=== PATIENT | male | born 1950 | race Caucasian/White ===

== ENCOUNTER 2018-08-15 06:23 | Day surgery (SDC) | payer OTHER ==
[2018-08-08 09:29] VITALS: BMI 39.0
[~2018-08-15 06:23] MED LIST: ACETAMINOPHEN 325 MG TABLET (FP) PO PRN; CEFAZOLIN 1 GM/D5W 1 GM/50 ML BAG IVPB ONE
[2018-08-15] MEDS ORDERED: LIDOCAINE HCL 1%, 10 MG/ML (20ML VIAL) ONE (07:41)
[2018-08-15] MEDS ORDERED: DEXAMETHASONE SOD PHOSPHATE 4 MG/1 ML VIAL ONE (07:41)
[2018-08-15] MEDS ORDERED: LIDOCAINE HCL 2% (20ML MULTI-DOSE VIAL) NR ONE (07:42)
[2018-08-15] MEDS ORDERED: BUPIVACAINE HCL/PF 0.5% (5MG/ML) 10 ML VIAL ONE (07:42)
[2018-08-15] MEDS ORDERED: MIDAZOLAM HCL 2 MG/2 ML SINGLE DOSE VIAL ONE ×2 (08:04)
[2018-08-15] MEDS ORDERED: ceFAZolin SODIUM 1 GM VIAL IVPB ONE (08:13)
[2018-08-15] MEDS ORDERED: LIDOCAINE HCL 1%, 10 MG/ML (20ML VIAL) NR ONE ×2 (08:18)
[2018-08-15] MEDS ORDERED: BUPIVACAINE HCL/PF (5 MG/ML) 30 ML VIAL IJ ONE ×2 (08:18)
[2018-08-15] MEDS ORDERED: ONDANSETRON 4 MG/2 ML VIAL IVPUSH PRN (09:16)
[2018-08-15] MEDS ORDERED: oxyCODONE HCL 5 MG TABLET PO PRN (09:16)
[2018-08-15] MEDS ORDERED: PROMETHAZINE HCL 25 MG/1 ML VIAL IVPB PRN (09:16)
[2018-08-15] MEDS ORDERED: LACTATED RINGERS SOLUTION 1,000 ML IV SCH (09:30)
[2018-08-15] MEDS ORDERED: ALBUTEROL SO4 0.083% IH SOL 2.5 MG/3 ML VIAL.NEB. NEB ONE (09:37)
[2018-08-15 10:52] VITALS: PULSE 88; TEMP 98
--- NOTE | 2018-08-15 11:53 | OP ---
Operative Note - Note: Operative Date: 08/15/18 Pre-Operative Diagnosis: Painful hammertoe deformity 4th and 5th toe left foot Operation: Left arthroplasty of 4th and fifth digits with medial hemiophalangectomy fifth toe left Findings: exostosis left medial phalanx Implants: none Surgeon: Luisa Garcia Anesthesiologist/COMPONENT ENGINEER: Merline Thapa MD Anesthesia: Fractional Specimens Removed: proximal phalanx head fouth and fifth toes left Estimated Blood Loss (mls): 5 Drains & Tubes with Location: none Operative Report Dictated: Yes
--- NOTE | 2018-08-15 12:07 | PN ---
Progress Note (short form) - Note Progress Note: Pt left or with vascular status instantaneus to preoperative levels and went to asu postoperatively. Dressing is dry and intact negative bleeding noted.
[2018-08-15 12:44] VITALS: BP 120/70
--- NOTE | 2018-08-17 15:31 | PATH ---
Surgical Pathology Report Patient Name: DANIELLE TRUJILLO [facility]. Rec. #: [id number] /Age/Gender: 1950 (Age: 68) / M Account: [id number] Location: [facility] SURGICAL Taken: 08/15/2018 Received: 08/15/2018 Reported: 08/17/2018 Physicians: Luisa Garcia DPM Specimen(s) Received A: 5TH TOE HEAD OF PHALANX LEFT FOOT B: 4TH TOE HEAD OF PHALANX LEFT FOOT Clinical History Painful hammertoes fourth and fifth toes left foot Final Diagnosis A. LEFT FOOT, FIFTH TOE HEAD OF PHALANX, EXCISION: BONE WITH FATTY MARROW SHOWING FOCAL DEGENERATIVE CHANGE. B. LEFT FOOT, FOURTH TOE HEAD OF PHALANX, EXCISION: BONE WITH FATTY MARROW SHOWING FOCAL DEGENERATIVE CHANGE. Electronically Signed Omar Fontanez M.D. Gross Description A. Received in formalin labeled "fifth toe head of phalanx," is a 1.2 x 0.6 x 0.6 cm frausto-yellow portion of bone. The specimen is bisected and entirely submitted in one cassette, following decalcification. B. Received in formalin labeled "left foot fourth toe head of phalanx," are 2 frausto-yellow portions of bone averaging 0.6 x 0.6 x 0.4 cm. The specimens are bisected and entirely submitted in one cassette, following decalcification. /08/16/2018 saudi08/16/2018
--- NOTE | 2018-08-17 21:24 | OP ---
DATE OF OPERATION: 08/15/2018 PREOPERATIVE DIAGNOSIS: Painful hammertoe, 4th and 5th digits, left foot. POSTOPERATIVE DIAGNOSIS: Painful hammertoe, 4th and 5th digits, left foot. SURGEON: Luisa Garcia DPM SLUNK SKINNER: Resident Pavithra De Jesus DPM, PGY3, from [facility] ANESTHESIA: 0.5% Marcaine with lidocaine 1% 50/50 solution 10 mL. OPERATION: Derotational arthroplasty, proximal interphalangeal joint, 5th digit, left foot; arthroplasty, proximal interphalangeal joint, 4th digit, right foot. HEMOSTASIS: Pneumatic ankle tourniquet at 250 mmHg. BLOOD LOSS: Less than 5 mL. PROCEDURE: The patient was brought in the operating room, placed in the supine position with IV sedation being given. IV Ancef 2 g was given preoperatively with consideration for ORIF to the 4th digit. A pneumatic tourniquet was applied to the left ankle and at this time local anesthesia was infiltrated into the 4th and 5th digit of the left foot using 9 mL of the Marcaine/lidocaine mix. The operative area was prepped and draped in the usual sterile manner with Betadine paint, and an Esmarch bandage was applied to the left foot after elevation and the tourniquet was elevated to 250 mmHg. Attention was then directed to the left 5th digit, where a converging 2 cm semielliptical longitudinal incision was made over the dorsolateral aspect of the left 5th toe. The incision encompassed the dorsal aspect of the proximal interphalangeal joint. The incisions were deepened through the subcutaneous tissue, with care taken to identify and retract all vital neurovascular structures. An ellipse of skin was removed in total using sharp dissection. All bleeders were cauterized and ligated as necessary. A transverse tenotomy and capsulotomy were made at the proximal interphalangeal joint. The head of the proximal phalanx was freed from the capsule and ligamentous attachments using a 15 blade. Utilizing a double-action bone cutter, the head of the proximal phalanx was resected and removed. Attention was then directed to the 4th digit of the left foot, where a vertical incision was made over the dorsal aspect of the digit encompassing the proximal interphalangeal joint. The incisions were deepened through the subcutaneous tissue with care taken to identify and retract all neurovascular structures at this time using sharp and blunt dissection. All bleeders were cauterized and ligated as necessary. A transverse tenotomy and capsulotomy were made at the proximal interphalangeal joint. The head of the proximal phalanx of the 4th proximal phalanx was freed from the capsular and ligamentous attachments utilizing the double-action bone cutter. The head of the proximal phalanx was resected and removed. At this time, the wounds were copiously irrigated with sterile saline and they were rasped smooth at the remaining spicules of the proximal phalanx. It was noted to be free of spiculization. It was re-irrigated again. The extensor tendons were approximated and coapted using 4-0 Vicryl sutures and the skin was closed with 5-0 nylon simple interrupted sutures over the 4th proximal interphalangeal joint and over the 5th proximal interphalangeal joint, both of the left foot. At this time, lidocaine and Marcaine mix, about 3 mL, was injected, 1.5 to each digit 4 and 5 of that left foot. Betadine, Adaptic, dry sterile dressing was applied to the 4th and 5th digit along with a 4-inch Teagan surrounding the well-padded dressing of 4 x 4s. A 4-inch Beto wrap was applied to the area. The tourniquet was then deflated. The patient tolerated the procedure well and was sent to recovery room with vital signs stable. All the digits on the left foot were noted to be instantaneous, the capillary filling time was instantaneous 1 through 5 to preoperative levels. There was no oozing through the dressing noted. Patient will be discharged with oral and written instructions as given. ESTELITA GARCIA/[id number]
== END 2018-08-15 12:30 | disposition home or self-care (01) ==
LOC: JASU-SURG 06:23
PROVIDERS: ATTEND Podiatrist
PROC: 0SRQ0JZ Replacement of Left Toe Phalangeal Joint with Synthetic Substitute, Open Approach (ICD-10-PCS; principal; 2018-08-15 08:00)
DX: M20.42 Other hammer toe(s) (acquired), left foot (principal)
CPT/HCPCS: 73630-TC-LT; 82962; 88304-TC; 88311-TC; 94760; 97116-GP

== ENCOUNTER 2018-09-28 13:46 | Emergency (ER) | payer OTHER ==
[2018-09-28 13:55] VITALS: BP 155/79; PULSE 88; TEMP 98.1; BMI 38.7
[2018-09-28 14:58] LABS: BASO % 0.5 % (0-2.0); EOS % 0.6 % (0-4.5); HEMOGLOBIN 15.7 GM/dL (11.7-16.9); LYMPH % 11.3 % (8-40); MCH 29.2 pg (25.7-33.7); MCHC 33.4 g/dl (32.0-35.9); MEAN CELL VOLUME 87.4 fl (80-96); MEAN PLT VOLUME 9.1 fl (7.5-11.1); MONO % 5.8 % (3.8-10.2); NEUT % 81.8 % (42.8-82.8); PLATELET COUNT 206 K/MM3 (134-434); RBC 5.38 M/mm3 (4.00-5.60); RDW 16.6 % (11.9-15.9); WHITE BLOOD COUNT 14.8 K/mm3 (4.0-10.0)
--- NOTE | 2018-09-28 15:07 | PDOC ---
*Physical Exam - Vital Signs Last Vital Signs Temp Pulse Resp BP Pulse Ox 98.1 F 88 16 155/79 93 L 09/28/18 13:51 09/28/18 13:51 09/28/18 13:51 09/28/18 13:51 09/28/18 13:51 - Physical Exam General Appearance: Yes: Nourished Neck: positive: Trachea midline Respiratory/Chest: positive: Chest Tender, Lungs Clear, Normal Breath Sounds Cardiovascular: positive: Regular Rhythm, Regular Rate, S1, S2 Gastrointestinal/Abdominal: positive: Normal Bowel Sounds, Flat, Soft. negative : Tender Extremity: positive: Pedal Edema, Swelling Integumentary: positive: Normal Color, Dry, Warm Neurologic: positive: Fully Oriented, Alert, Normal Mood/Affect ED Treatment Course - LABORATORY CBC & Chemistry Diagram: 09/28/18 14:51 09/28/18 14:51 Medical Decision Making - Medical Decision Making 09/28/18 15:01 68 yo male ho htn copd, followed by dr dutton, sent here from oxygen; pulmonary testing, here for concerns for sob. per patient, they were ambulating to test for home oxygen, walked him up and down the hallway. became short of breath. denies chest pain, but does have chest heaviness. no f/c no change to cough. states normally takes lasix but did not take today because he had an appointment and didn't want to be going to bathroom all the time. on exam pt lungs clear , appears comfortable. heart rrr no mr abd soft nt bilat pitting edema. both extremities. alert oriented x 3. plan labs r/o anemia, acs, ekg labs , r/o chf. cxr. will d/w dr dutton . 09/28/18 15:07 seen and examined in conjunction with JENNIFER Keith, agree with plan. *DC/Admit/Observation/Transfer - Discharge Dispostion Condition at time of disposition: Stable - Referrals - Patient Instructions - Post Discharge Activity
--- NOTE | 2018-09-28 15:26 | EKG ---
Test Reason : Blood Pressure : / mmHG Vent. Rate : 092 BPM Atrial Rate : 092 BPM P-R Int : 202 ms QRS Dur : 106 ms QT Int : 382 ms P-R-T Axes : 046 -62 046 degrees QTc Int : 472 ms SINUS RHYTHM WITH OCCASIONAL PREMATURE VENTRICULAR COMPLEXES INCOMPLETE RIGHT BUNDLE BRANCH BLOCK LEFT ANTERIOR FASCICULAR BLOCK CANNOT RULE OUT ANTERIOR INFARCT , AGE UNDETERMINED ABNORMAL ECG WHEN COMPARED WITH ECG OF 08-AUG-2018 08:35, NO SIGNIFICANT CHANGE WAS FOUND Confirmed by RAFIQ KIMBALL MD ([id number]) on 09/28/2018 3:25:44 PM Referred By: Confirmed By:RAFIQ KIMBALL MD
[2018-09-28 15:36] LABS: ALBUMIN 3.5 g/dl (3.4-5.0); ALK PHOS 90 U/L (45-117); ANION GAP 6 MMOL/L (8-16); BILIRUBIN,TOTAL 0.5 mg/dL (0.2-1); BLOOD UREA NITROGEN 16 mg/dL (7-18); CALCIUM 8.7 mg/dL (8.5-10.1); CHLORIDE 110 mmol/L (98-107); CO2 25 mmol/L (21-32); GLUCOSE,RANDOM 92 mg/dL (74-106); N-TERMINAL BNP 1296.1 pg/ml (5-125); POTASSIUM 4.4 mmol/L (3.5-5.1); SGOT/AST 11 U/L (15-37); SGPT/ALT 22 U/L (13-61); SODIUM 140 mmol/L (136-145); TOT PROT 6.8 g/dl (6.4-8.2)
--- NOTE | 2018-09-28 16:05 | PDOC ---
History of Present Illness - General Chief Complaint: Shortness of Breath Stated Complaint: SENT BY PCP Time Seen by Provider: 09/28/18 14:23 Exam Limitations: Clinical Condition - History of Present Illness Initial Comments: 09/28/18 14:32 Patient with history of hypertension, CAD and emphysema sent down by pulmonology for evaluation status post being sent for evaluation of possible supplementary oxygen due to patient having persistent low O2 sat from COPD and patient reported his O2 sats is usually around high 80%. Patient reports he was evaluated by pulmonology department today for evaluation for home oxygen and was made to walk multiple times which he started having shortness of breath after walking multiple times and was advised by knife setter grinder machine Dr. King to come down to ED for evaluation. Patient reported symptoms had resolved and had no symptoms now. Patient endorses not taking his lasix medications for peripheral edema for a week now due to appointment and does not want it in the ED as it makes him urinate frequently and will rather take his lasix medication when he gets home Timing/Duration: resolved prior to arrival Past History - Past Medical History Allergies/Adverse Reactions: Allergies Allergy/AdvReac Type Severity Reaction Status Date / Time No Known Drug Allergies Allergy Verified 09/28/18 15:04 Home Medications: Ambulatory Orders Benazepril HCl 40 mg PO DAILY 01/26/13 metFORMIN HCL [Glucophage] 1,000 mg PO BID 01/26/13 Carvedilol 3.125 mg PO TID 06/28/14 Atorvastatin Ca [Lipitor] 40 mg PO HS 08/08/18 Diltiazem [Cardizem -] 30 mg PO DAILY 08/08/18 Insulin NPH Human Isophane [Novolin N] 30 unit SQ HS 08/08/18 Insulin NPH Human Isophane [Novolin N] 70 unit SQ DAILY 08/08/18 Anemia: No Asthma: No Cancer: No Cardiac Disorders: Yes (RAPID HEART BEAT) CVA: No COPD: No CHF: No Dementia: No Diabetes: Yes GI Disorders: No Disorders: No HTN: Yes Hypercholesterolemia: Yes Liver Disease: No Seizures: No Thyroid Disease: No Other medical history: empysema - Surgical History Abdominal Surgery: No Appendectomy: No Cardiac Surgery: No Cholecystectomy: No Lung Surgery: No Neurologic Surgery: No Orthopedic Surgery: Yes (MAKOPLASTY L KNEE,R FOOT SX) - Immunization History Immunization Up to Date: Yes - Suicide/Smoking/Psychosocial Hx Smoking History: Former smoker Have you smoked in the past 12 months: No If you are a former smoker, when did you quit?: 11 YRS AGO Information on smoking cessation initiated: No Hx Alcohol Use: No Drug/Substance Use Hx: No Substance Use Type: None Hx Substance Use Treatment: No Review of Systems - Review of Systems Able to Perform ROS?: Yes Is the patient limited Georgian proficient: No Constitutional: No: Chills, Fever, Malaise HEENTM: No: Symptoms Reported, See HPI, Eye Pain, Blurred Vision, Tearing, Recent change in vision, Double Vision, Cataracts, Ear Pain, Ocular Prothesis, Ear Discharge, Nose Pain, Nose Congestion, Tinnitus, Nose Bleeding, Hearing Loss , Throat Pain, Throat Swelling, Mouth Pain, Dental Problems, Difficulty Swallowing, Mouth Swelling, Other Respiratory: Yes: Symptoms reported, See HPI, Shortness of Breath (resolved), SOB with Exertion. No: Cough, Orthopnea, SOB at Rest, Stridor, Wheezing, Productive cough, Hemoptysis, Other Cardiac (ROS): Yes: Symptoms Reported, See HPI, Chest Tightness (resolved). No : Chest Pain, Edema, Irregular Heart Rate, Lightheadedness, Palpitations, Syncope, Other ABD/GI: No: Nausea, Vomiting All Other Systems: Reviewed and Negative *Physical Exam - Vital Signs Last Vital Signs Temp Pulse Resp BP Pulse Ox 98.1 F 88 16 155/79 93 L 09/28/18 13:51 09/28/18 13:51 09/28/18 13:51 09/28/18 13:51 09/28/18 13:51 - Physical Exam Comments: 09/28/18 17:12 GENERAL: Well developed, well nourished. Awake and alert. No acute distress. HEENT: Normocephalic, atraumatic. PERRLA, EOMI. No conjunctival pallor. Sclera are non-icteric. Moist mucous membranes. Oropharynx is clear. NECK: Supple. Full ROM. CARDIOVASCULAR: Regular rate and rhythm. No murmurs, rubs, or gallops. Distal pulses are 2+ and symmetric. PULMONARY: No evidence of respiratory distress. Lungs clear to auscultation bilaterally. No wheezing, rales or rhonchi. ABDOMINAL: Soft. Non-tender. Non-distended. No rebound or guarding. No organomegaly. Normoactive bowel sounds. MUSCULOSKELETAL Normal range of motion at all joints. EXTREMITIES: moderate b/l peripheral edema. No cyanosis. No clubbing. No calf tenderness. SKIN: Warm and dry. Normal capillary refill. No rashes. No jaundice. NEUROLOGICAL: Alert, awake, appropriate. Gait is normal without ataxia. PSYCHIATRIC: Cooperative. Good eye contact. Appropriate mood General Appearance: Yes: Nourished, Appropriately Dressed. No: Apparent Distress HEENT: positive: Normal ENT Inspection Neck: positive: Supple Respiratory/Chest: negative: Respiratory Distress, Accessory Muscle Use Cardiovascular: positive: Regular Rhythm, Regular Rate ED Treatment Course - LABORATORY CBC & Chemistry Diagram: 09/28/18 14:51 09/28/18 14:51 - ADDITIONAL ORDERS Additional order review: Laboratory Results 09/28/18 14:51 Sodium 140 Potassium 4.4 Chloride 110 H Carbon Dioxide 25 Anion Gap 6 L BUN 16 Creatinine 1.0 Creat Clearance w eGFR 74.76 Random Glucose 92 Calcium 8.7 Total Bilirubin 0.5 AST 11 L ALT 22 Alkaline Phosphatase 90 Creatine Kinase 95 Troponin I 0.08 H B-Natriuretic Peptide 1296.1 H Total Protein 6.8 Albumin 3.5 09/28/18 14:51 RBC 5.38 MCV 87.4 MCHC 33.4 RDW 16.6 H MPV 9.1 Neutrophils % 81.8 Lymphocytes % 11.3 Monocytes % 5.8 Eosinophils % 0.6 Basophils % 0.5 - RADIOLOGY Radiology Studies Ordered: Category Date Time Status CHEST PA & LAT [RAD] Stat Radiology 09/28/18 14:53 Ordered Medical Decision Making - Medical Decision Making 09/28/18 16:34 Patient with history of hypertension, CAD and emphysema sent down by pulmonology for evaluation status post being signed for evaluation of possible supplementary oxygen due to patient having persistent low O2 sat area and patient reported his O2 sats is usually around high 80%. Patient reports he was evaluated by pulmonology department today for evaluation of accident was made to walk multiple times which she started having shortness of breath after walking multiple times and was advised by knife setter grinder machine Dr. King to come down for evaluation. Report report not taking his lasix for a week now. Patient reported symptoms had resolved and had no symptoms now. Exam significant for moderate bilateral pitting edema. Lungs clear to auscultation bilateral. Normal cardiac exam. EKG shows sinus rhythm with PVCs with patient reported always had that followed up by cardiology. Lying CBC shows elevated WBCs of 14. BNP is 1285. troponins is 0.08. Patient refused chest x-rays was he report he had multiple x-rays and everything was fine and does not need another x-rays. Spoke to pt pulmologist Dr. King who agrees pt needs to be admitted for management of CHF exacerbations Results discussed with patient and advised patient he needs to be admitted for CHF exacerbations but patient refused to be admitted. 09/28/18 17:[address] Almanza spoke to patient about admission and patient again refused admission as he believe his symptoms will improve after he takes his lasix which he has not been taking for a week now and will come back if symptoms worsened. Discussed with patient in length the risk of leaving against medical advised and pt still adamant to leave. Patient signed AMA form *DC/Admit/Observation/Transfer Diagnosis at time of Disposition: COPD (chronic obstructive pulmonary disease) with emphysema Qualifiers: Emphysema type: unspecified Qualified Code(s): J43.9 - Emphysema, unspecified CHF (congestive heart failure) Qualifiers: Heart failure type: unspecified Heart failure chronicity: chronic Qualified Code(s): I50.9 - Heart failure, unspecified - Discharge Dispostion Disposition: AGAINST MEDICAL ADVICE Condition at time of disposition: Stable Decision to Admit order: No - Referrals Referrals: Valdo King MD [Staff Physician] - - Patient Instructions - Post Discharge Activity
== END 2018-09-28 17:44 | disposition left against medical advice (07) ==
LOC: JER 13:46
DX: J43.8 Other emphysema (principal); I25.10 Atherosclerotic heart disease of native coronary artery without angina pectoris; I10 Essential (primary) hypertension; E11.9 Type 2 diabetes mellitus without complications; Z79.4 Long term (current) use of insulin
CPT/HCPCS: 36415; 80053; 82550; 83880; 84484; 85025; 93005; 93010; 99282-25

== ENCOUNTER 2019-02-09 09:39 | Emergency (ER) | payer OTHER ==
[2019-02-09 09:47] VITALS: BMI 37.6
--- NOTE | 2019-02-09 09:49 | PDOC ---
History of Present Illness - General Chief Complaint: Pain Stated Complaint: LT SIDE RIB PAIN Time Seen by Provider: 02/09/19 09:49 Past History - Past Medical History Allergies/Adverse Reactions: Allergies Allergy/AdvReac Type Severity Reaction Status Date / Time No Known Drug Allergies Allergy Verified 02/09/19 09:43 Home Medications: Ambulatory Orders Benazepril HCl 40 mg PO DAILY 01/26/13 metFORMIN HCL [Glucophage] 1,000 mg PO BID 01/26/13 Carvedilol 3.125 mg PO TID 06/28/14 Atorvastatin Ca [Lipitor] 40 mg PO HS 08/08/18 Diltiazem [Cardizem -] 30 mg PO DAILY 08/08/18 Insulin NPH Human Isophane [Novolin N] 30 unit SQ HS 08/08/18 Insulin NPH Human Isophane [Novolin N] 70 unit SQ DAILY 08/08/18 Anemia: No Asthma: No Cancer: No Cardiac Disorders: Yes (RAPID HEART BEAT) CVA: No COPD: No CHF: No Dementia: No Diabetes: Yes GI Disorders: No Disorders: No HTN: Yes Hypercholesterolemia: Yes Liver Disease: No Seizures: No Thyroid Disease: No - Surgical History Abdominal Surgery: No Appendectomy: No Cardiac Surgery: No Cholecystectomy: No Lung Surgery: No Neurologic Surgery: No Orthopedic Surgery: Yes (MAKOPLASTY L KNEE,R FOOT SX) - Immunization History Immunization Up to Date: Yes - Suicide/Smoking/Psychosocial Hx Smoking History: Never smoked Have you smoked in the past 12 months: No If you are a former smoker, when did you quit?: 11 YRS AGO Hx Alcohol Use: No Drug/Substance Use Hx: No Substance Use Type: None Hx Substance Use Treatment: No *Physical Exam - Vital Signs Last Vital Signs Temp Pulse Resp BP Pulse Ox 98.2 F 93 H 17 171/84 H 89 L 02/09/19 09:43 02/09/19 09:43 02/09/19 09:43 02/09/19 09:43 02/09/19 09:43
--- NOTE | 2019-02-09 10:27 | PDOC ---
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 Since the fall hes had sharp left sided rib pain which is worse upon inspiration. The patient states he has not been able to inhale well for the past 2 days and his pain has been worsening. He has not taken any medications for his pain. The patient also endorses left forearm pain and decreased strength in his wrist and hand since the fall. The patient denies having experienced recent chest pain, SOB, difficulty breathing, headache, head trauma, or syncope. States he does not believe he is having a COPD exacerbation. PCP: Phuc Berry International Marketing Manager: Dr. Robledo PSH: Recent lower extremity orthopedic surgery Social Hx: Former smoker quit 11 years ago Allergies: NKA, NKDA Past History - Past Medical History Allergies/Adverse Reactions: Allergies Allergy/AdvReac Type Severity Reaction Status Date / Time No Known Drug Allergies Allergy Verified 02/09/19 09:43 Home Medications: Ambulatory Orders Benazepril HCl 40 mg PO DAILY 01/26/13 metFORMIN HCL [Glucophage] 1,000 mg PO BID 01/26/13 Carvedilol 3.125 mg PO TID 06/28/14 Atorvastatin Ca [Lipitor] 40 mg PO HS 08/08/18 Diltiazem [Cardizem -] 30 mg PO DAILY 08/08/18 Insulin (Novolog 70/30) [Novolog Mix 70/30 Vial] 70 units SQ AM 02/09/19 Insulin NPH Hum/Reg Insulin Hm [Novolin 70-30 100 Unit/ml Vial] 30 unit SQ HS Anemia: No Asthma: No Cancer: No Cardiac Disorders: Yes (RAPID HEART BEAT) CVA: No COPD: No CHF: No Dementia: No Diabetes: Yes GI Disorders: No Disorders: No HTN: Yes Hypercholesterolemia: Yes Liver Disease: No Seizures: No Thyroid Disease: No - Surgical History Abdominal Surgery: No Appendectomy: No Cardiac Surgery: No Cholecystectomy: No Lung Surgery: No Neurologic Surgery: No Orthopedic Surgery: Yes (MAKOPLASTY L KNEE,R FOOT SX) - Immunization History Immunization Up to Date: Yes - Suicide/Smoking/Psychosocial Hx Smoking History: Never smoked Have you smoked in the past 12 months: No If you are a former smoker, when did you quit?: 11 YRS AGO Hx Alcohol Use: No Drug/Substance Use Hx: No Substance Use Type: None Hx Substance Use Treatment: No Review of Systems - Review of Systems Able to Perform ROS?: Yes Comments:: CONSTITUTIONAL: Absent: fever, no chills, no fatigue EYES: Absent: visual changes ENT: Absent: ear pain, no sore throat CARDIOVASCULAR: Absent: chest pain, no palpitations RESPIRATORY: Present: SOB Absent: cough GI: Absent: abdominal pain, no nausea, no vomiting, no constipation, no diarrhea GENITOURINARY: Absent: dysuria, no frequency, no hematuria MUSKULOSKELETAL: Present: Arthralgia Absent: back pain, no myalgia SKIN: Absent: rash NEURO: Absent: headache *Physical Exam - Vital Signs Last Vital Signs Temp Pulse Resp BP Pulse Ox 98.2 F 94 H 20 167/104 H 94 L 02/09/19 09:43 02/09/19 10:01 02/09/19 10:01 02/09/19 10:01 02/09/19 10:01 - Physical Exam Comments: GENERAL: Well developed, well nourished. Awake and alert. No acute distress. HEENT: Normocephalic, atraumatic. PERRLA, EOMI. Moist mucous membranes. Oropharynx is clear. NECK: Supple. Full ROM. No JVD. No thyromegaly. No lymphadenopathy. CARDIOVASCULAR: Regular rate and rhythm. Distal pulses are 2+ and symmetric. PULMONARY: There is mild crackles at the left base. Decreased ability to inspire secondary to pain. No wheezing or rhonchi. ABDOMINAL: Soft. Non-tender. Non-distended. No rebound or guarding. No organomegaly. Normoactive bowel sounds. MUSCULOSKELETAL There is significant left sided rib pain from T4-T8. Normal range of motion at all joints. There is decreased strength in the left hand compared to the right. There is left proximal radial bone TTP. EXTREMITIES: No cyanosis. No clubbing. No edema. No calf tenderness. SKIN: Warm and dry. Normal capillary refill. No rashes. No jaundice. NEUROLOGICAL: Alert, awake, appropriate. No deficits to light touch in face, upper extremities and lower extremities. No motor deficits in the in face, or lower extremities. Normal speech. Gait is normal without ataxia. PSYCHIATRIC: Cooperative. Good eye contact. Appropriate mood and affect. 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 Since the fall hes had sharp left sided rib pain which is worse upon inspiration. The patient states he has not been able to inhale well for the past 2 days and his pain has been worsening. He has not taken any medications for his pain. The patient also endorses left forearm pain and decreased strength in his wrist and hand since the fall. Vital Signs Temp Pulse Resp BP Pulse Ox 98 F 81 18 149/85 95 02/09/19 12:23 02/09/19 12:23 02/09/19 12:23 02/09/19 12:23 02/09/19 12:23 DDx IBNLT: Pneumothorax, PNA, rib fracture, left elbow/arm/wrist injury, electrolyte/metabolic disturbance Plan: Labs, left rib series, CXR, left elbow/arm/wrist films, analgesia, EKG, re -assess. Labs: Leukocytosis with left shift. Mildly elevated potassium. XRs: Avulsion off the distal radial aspect of the humerus. Re-assessment: Patient feels better after analgesia and requests to be discharged with orthopedic follow up. He is very antsy and refuses to stay in the ER any longer. Disposition: Home with ortho follow up in the next 7 to 10 days. Strict return precautions discussed with patient including need for immediate return if his pain gets worse, he has difficulty breathing, gets a fever or chills. Patient warned about occult rib fracture but declined offer for cat scan for definitive rib fx identification. *DC/Admit/Observation/Transfer Diagnosis at time of Disposition: Rib pain on left side, Left arm pain Elbow fracture, left Qualifiers: Encounter type: initial encounter Fracture type: closed Qualified Code(s): S42.402A - Unspecified fracture of lower end of left humerus, initial encounter for closed fracture - Discharge Dispostion Disposition: HOME Condition at time of disposition: Improved Decision to Admit order: No - Referrals Referrals: Iban Aguero MD [Staff Physician] - Phuc Berry MD, MD [Primary Care Provider] - - Patient Instructions Printed Discharge Instructions: How to Use a Sling, DI for Elbow Fracture Additional Instructions: You have a fracture of your elbow at the very edge on the outside of it. Please use the sling until you see the orthopedic surgeon. Please make an appointment with the surgeon as soon as possible. Please use Tylenol for the pain. Please return to the ED if you have new or worsening symptoms. Print Language: ZAMBIAN - Post Discharge Activity
[2019-02-09] MEDS ORDERED: LIDOCAINE 5% TOPICAL PATCH TP ONE (10:41)
[2019-02-09] MEDS ORDERED: ACETAMINOPHEN 1000 MG/100 ML VIAL (NON FORMULARY) IVPB ONE (10:43)
[2019-02-09] MEDS ORDERED: LIDOCAINE 5% TOPICAL PATCH ONE (10:47)
[2019-02-09] MEDS ORDERED: ACETAMINOPHEN INJECTION 100 ML IVPB ONE (10:47)
[2019-02-09 11:03] LABS: BASO % 1.4 % (0-2.0); EOS % 1.5 % (0-4.5); HEMATOCRIT 46.3 % (35.4-49); HEMOGLOBIN 15.5 GM/dL (11.7-16.9); MCH 30.2 pg (25.7-33.7); MCHC 33.5 g/dl (32.0-35.9); MEAN CELL VOLUME 90.1 fl (80-96); MEAN PLT VOLUME 8.9 fl (7.5-11.1); NEUT % 79.1 % (42.8-82.8); PLATELET COUNT 208 K/MM3 (134-434); RBC 5.14 M/mm3 (4.00-5.60); WHITE BLOOD COUNT 12.5 K/mm3 (4.0-10.0)
[2019-02-09 11:26] LABS: ALBUMIN 3.9 g/dl (3.4-5.0); BILIRUBIN,TOTAL 0.8 mg/dL (0.2-1); POTASSIUM 5.4 mmol/L (3.5-5.1); TOT PROT 7.2 g/dl (6.4-8.2)
[2019-02-09 12:23] VITALS: BP 149/85; PULSE 81; TEMP 98
--- NOTE | 2019-02-09 16:52 | PDOC ---
Documentation entered by Araceli Royal SCRIBE, acting as scribe for Viki Gaitan MD. Viki Gaitan MD: This documentation has been prepared by the scribe, Araceli Royal SCRIBE, under my direction and personally reviewed by me in its entirety. I confirm that the documentation accurately reflects all work, treatment, procedures, and medical decision making performed by me. Attending Attestation - Resident Resident Name: Torres Weber - ED Attending Attestation I have performed the following: I have examined & evaluated the patient, The case was reviewed & discussed with the resident, I agree w/resident's findings & plan, Exceptions are as noted - HPI HPI: 02/09/19 11:06 The patient is a 68-year-old male, with a past medical history of COPD ( emphysema on 2L home O2), CHF, CAD, HTN, IDDM, and HCL, who presents to the ED with left-sided rib pain s/p mechanical fall at work 2 days ago. The patient states that he fell off a step, landing on his LT ribs and LT arm. He is now experiencing LT rib pain that he describes as constant and exacerbated when he coughs or sneezes. The patient denies any chest pain or shortness or breath. Denies any fevers, chills, nausea, vomiting, or abdominal pain. Denies any other injuries or symptoms. Allergies: NKDA PCP: Dr. Berry - Physicial Exam PE: 02/09/19 11:07 GENERAL: Awake, alert, and fully oriented, in no acute distress HEAD: No signs of trauma EYES: PERRLA, EOMI, sclera anicteric, conjunctiva clear ENT: Auricles normal inspection, hearing grossly normal, nares patent, oropharynx clear without exudates. Moist mucosa NECK: Normal ROM, supple, no lymphadenopathy, JVD, or masses LUNGS: (+)Lungs with splinting. HEART: Regular rate and rhythm, normal S1 and S2, no murmurs, rubs or gallops ABDOMEN: Soft, nontender, normoactive bowel sounds. No guarding, no rebound. No masses EXTREMITIES: (+)LT upper extremity has mild diffuse swelling to dorsal portion of arm, mild diffuse tenderness. No tenderness at the wrist or elbow. No clubbing or cyanosis. No cords, or erythema NEUROLOGICAL: Cranial nerves II through XII grossly intact. Normal speech. SKIN: Warm, Dry, normal turgor, no rashes or lesions noted. - Medical Decision Making 02/09/19 16:51 Pt presents to the ED complainining of pleuritic chest pain after fall several days ago. Also has diffusely swollen L forearm. Xray shows distal humerus fx. CXR is negative for rib fx. Will discharge home with instructions to follow up with PMD.
[2019-02-09] MEDS ORDERED: LIDOCAINE PATCH REMOVAL MC SCH (22:00)
--- NOTE | 2019-02-10 11:33 | EKG ---
Test Reason : Blood Pressure : / mmHG Vent. Rate : 095 BPM Atrial Rate : 095 BPM P-R Int : 202 ms QRS Dur : 102 ms QT Int : 370 ms P-R-T Axes : 052 -56 -07 degrees QTc Int : 464 ms SINUS RHYTHM WITH OCCASIONAL PREMATURE VENTRICULAR COMPLEXES LEFT ANTERIOR FASCICULAR BLOCK CANNOT RULE OUT INFERIOR INFARCT (MASKED BY FASCICULAR BLOCK?) , AGE UNDETERMINED ABNORMAL ECG WHEN COMPARED WITH ECG OF 28-SEP-2018 13:52, T WAVE INVERSION NOW EVIDENT IN INFERIOR LEADS Confirmed by RAFIQ KIMBALL MD ([id number]) on 02/10/2019 11:32:43 AM Referred By: Confirmed By:RAFIQ KIMBALL MD
== END 2019-02-09 12:35 | disposition home or self-care (01) ==
LOC: JERFT 09:39
PROC: 3E033NZ Introduction of Analgesics, Hypnotics, Sedatives into Peripheral Vein, Percutaneous Approach (ICD-10-PCS; principal; 2019-02-09)
DX: S42.402A Unspecified fracture of lower end of left humerus, initial encounter for closed fracture (principal); W01.0XXA Fall on same level from slipping, tripping and stumbling without subsequent striking against object, initial encounter; Y93.89 Activity, other specified; Y92.89 Other specified places as the place of occurrence of the external cause; I25.10 Atherosclerotic heart disease of native coronary artery without angina pectoris; I10 Essential (primary) hypertension; E11.9 Type 2 diabetes mellitus without complications; E78.00 Pure hypercholesterolemia, unspecified; J44.9 Chronic obstructive pulmonary disease, unspecified
CPT/HCPCS: 36415; 71046-TC-FY; 71101-TC-LT-FY; 73070-TC-LT-FY; 73090-TC-LT-FY; 73110-TC-LT-FY; 80053; 85025; 93005; 93010; 96374; 99284-25; J0131

== ENCOUNTER 2020-05-26 09:52 | Inpatient (IN) | payer OTHER ==
[2020-05-26] MEDS ORDERED: EPINEPHrine 1:10,000 (P-F SYR) 1 MG/10 ML DISP.SYRIN ONE (10:24)
[2020-05-26] MEDS ORDERED: ASPIRIN 81 MG CHEWABLE TABLETS PO ONE (10:54)
[2020-05-26] MEDS ORDERED: DOPAMINE 400 MG/D5W - 400,000 MCG/250 ML INFUS.BAG IVPB SCH ×2 (11:00→12:00)
[2020-05-26] MEDS ORDERED: NOREPINEPHRINE BITARTRATE 8,000 MCG/500 ML BAG IVPB SCH ×2 (11:00→14:44)
[2020-05-26 11:23] LABS: BASO % 0.8 % (0-2.0); EOS % 0.1 % (0-4.5); HEMATOCRIT 51.6 % (35.4-49); HEMOGLOBIN 16.1 GM/dL (11.7-16.9); LYMPH % 11.6 % (8-40); MCH 25.1 pg (25.7-33.7); MCHC 31.2 g/dl (32.0-35.9); MEAN CELL VOLUME 80.2 fl (80-96); MEAN PLT VOLUME 9.7 fl (7.5-11.1); MONO % 1.3 % (3.8-10.2); NEUT % 86.2 % (42.8-82.8); PLATELET COUNT 219 K/MM3 (134-434); RBC 6.43 M/mm3 (4.00-5.60); RDW 25.3 % (11.9-15.9); WHITE BLOOD COUNT 25.4 K/mm3 (4.0-10.0)
[2020-05-26 11:28] LABS: INR 1.17 (0.83-1.09); PROTHROMBIN TIME (PATIENT) 14.1 SEC (9.7-13.0)
[2020-05-26] MEDS ORDERED: MIDAZOLAM IN 0.9 % SOD.CHLORID 1 MG/1 ML PLAST..BAG ONE ×2 (11:28→20:40)
[2020-05-26] MEDS ORDERED: MIDAZOLAM 100 MG in SODIUM CHLORIDE 100 ML IVPB SCH (11:30)
[2020-05-26 11:31] LABS: ACTIVATED PTT 50.3 SECONDS (25.2-36.5)
[2020-05-26 11:48] LABS: CALCIUM 9.1 mg/dL (8.5-10.1)
[2020-05-26 11:49] LABS: ALBUMIN 3.4 g/dl (3.4-5.0); BLOOD UREA NITROGEN 31.4 mg/dL (7-18); MAGNESIUM 2.2 mg/dL (1.8-2.4)
[2020-05-26 11:52] LABS: CREATININE 1.9 mg/dL (0.55-1.3)
[2020-05-26 11:53] LABS: BILIRUBIN,TOTAL 0.6 mg/dL (0.2-1)
[2020-05-26 11:57] LABS: N-TERMINAL BNP 1790.5 pg/ml (5-125)
[2020-05-26 12:00] LABS: POTASSIUM 9.1 mmol/L (3.5-5.1)
[2020-05-26] MEDS ORDERED: INSULIN REGULAR HUMAN 100 UNITS/ML *VIAL IVPUSH ONE ×2 (12:01→13:39)
[2020-05-26] MEDS ORDERED: SODIUM BICARBONATE 8.4% 50 MEQ/50 ML VIAL IV ONE ×2 (12:02→13:40)
[2020-05-26] MEDS ORDERED: CALCIUM CHLORIDE 10% 1 GM/10 ML *VIAL IVPUSH ONE ×2 (12:02→13:40)
[2020-05-26] MEDS ORDERED: CALCIUM CHLORIDE 1 GM/10 ML *DISP.SYRIN ONE ×2 (12:04→13:52)
[2020-05-26] MEDS ORDERED: SODIUM BICARBONATE 8.4% 50 MEQ/50 ML VIAL ONE ×2 (12:06→13:52)
[2020-05-26] MEDS ORDERED: ASPIRIN 81 MG CHEWABLE TABLETS ONE (12:11)
[2020-05-26] MEDS ORDERED: DOPAMINE 400 MG/D5W - 400,000 MCG/250 ML INFUS.BAG IVPB ONE (12:39)
[2020-05-26 12:51] LABS: PLATELET ESTIMATE NORMAL
[2020-05-26 13:25] LABS: CALCIUM 10.4 mg/dL (8.5-10.1)
[2020-05-26 13:26] LABS: BLOOD UREA NITROGEN 36.2 mg/dL (7-18)
[2020-05-26 13:29] LABS: CREATININE 1.9 mg/dL (0.55-1.3)
[2020-05-26 13:31] LABS: ARTERIAL BLD GAS O2 SATURATION 99.5 mmHg (95-98); ARTERIAL BLOOD GAS BASE EXCESS -9.9 mmol/L (-2-2); ARTERIAL BLOOD GAS PO2 273.7 mmHg (80-100)
[2020-05-26 13:33] LABS: POTASSIUM 8.1 mmol/L (3.5-5.1)
[2020-05-26 13:39] LABS: ALLENS TEST POSITIVE
[2020-05-26 13:40] LABS: VENT MODE A/C; VENT RATE 16
[2020-05-26] MEDS ORDERED: INSULIN REGULAR HUMAN 100 UNITS/ML *VIAL ONE (13:53)
[2020-05-26] MEDS ORDERED: SODIUM CHLORIDE 0.9% 500 ML INFUS.BAG IV ONE (13:59)
[2020-05-26] MEDS ORDERED: LACTATED RINGERS SOLUTION 1,000 ML/1,000 ML INFUS.BAG IV SCH ×2 (14:00→20:30)
[2020-05-26] MEDS ORDERED: SODIUM ZIRCONIUM CYCLOSILICATE (LOKELMA) 5 GM PACKET PO ONE (14:01)
[2020-05-26] MEDS ORDERED: SODIUM ZIRCONIUM CYCLOSILICATE (LOKELMA) 5 GM PACKET ONE (14:13)
[2020-05-26] MEDS ORDERED: PROPOFOL 1,000,000 MCG/100 ML VIAL IVPB SCH (14:45)
[2020-05-26] MEDS ORDERED: PROPOFOL 0 MCG/0 ML VIAL ONE (14:48)
[2020-05-26 15:25] LABS: EPI CELLS 4 /uL (0-25.1); HYALINE CASTS 3 /uL (0-3.1); PH,URINE 5.5 (5.0-8.0); URINE APPEARANCE CLOUDY; URINE BACTERIA 965 /uL (0-1359); URINE BILIRUBIN NEGATIVE (NEGATIVE); URINE COLOR YELLOW; URINE GLUCOSE (UA) 3+ (NEGATIVE); URINE KETONE NEGATIVE (NEGATIVE); URINE LEUK ESTERASE NEGATIVE (NEGATIVE); URINE NITRITE NEGATIVE (NEGATIVE); URINE PROTEIN 3+ (NEGATIVE); URINE RBC 50 /uL (0-23.9)
[2020-05-26 15:28] LABS: POTASSIUM 5.2 mmol/L (3.5-5.1)
[2020-05-26 15:29] LABS: CALCIUM 9.9 mg/dL (8.5-10.1)
[2020-05-26 15:30] LABS: BLOOD UREA NITROGEN 38.5 mg/dL (7-18)
[2020-05-26 15:33] LABS: CREATININE 1.9 mg/dL (0.55-1.3)
[2020-05-26 18:23] LABS: ARTERIAL BLD GAS O2 SATURATION 99.7 mmHg (95-98); ARTERIAL BLOOD GAS BASE EXCESS -4.8 mmol/L (-2-2); ARTERIAL BLOOD GAS PO2 307.3 mmHg (80-100); ARTERIAL BLOOD GAS pH 7.334 (7.350-7.450)
[2020-05-26 18:24] LABS: ALLENS TEST POSITIVE; VENT MODE A/C; VENT RATE 16
[2020-05-26] MEDS ORDERED: PROPOFOL 1,000,000 MCG/100 ML VIAL ONE ×2 (18:33→20:08)
[2020-05-26 18:46] LABS: POTASSIUM 5.2 mmol/L (3.5-5.1)
[2020-05-26 18:47] LABS: CALCIUM 9.7 mg/dL (8.5-10.1)
[2020-05-26 18:48] LABS: BLOOD UREA NITROGEN 44.5 mg/dL (7-18)
[2020-05-26 18:51] LABS: CREATININE 2.1 mg/dL (0.55-1.3)
[2020-05-26] MEDS ORDERED: METOPROLOL TARTRATE 5 MG/5 ML VIAL IVPUSH ONE (20:29)
[2020-05-26] MEDS ORDERED: METOPROLOL TARTRATE 5 MG/5 ML VIAL ONE (20:41)
[2020-05-26] MEDS ORDERED: INSULIN SLIDING SCALE (NOVOLOG) 1 VIAL SQ SCH (22:00)
[2020-05-26] MEDS ORDERED: CHLORHEXIDINE GLUCONATE 4% CLEANSER FOR DECOLONIZATION TP SCH (22:00)
[2020-05-26] MEDS ORDERED: MUPIROCIN 2% TOPICAL OINTMENT FOR DECOLONIZATION NS SCH (22:00)
[2020-05-26] MEDS ORDERED: VASOPRESSIN 40 UNITS in SODIUM CHLORIDE 98 ML IVPB SCH (22:00)
[2020-06-05 07:14] VITALS: BP 153/94; PULSE 93; TEMP 99.6
== END 2020-05-26 22:01 | disposition expired | DRG 208 ==
LOC: JER 09:52 → MERGE 11:55 → JERBED 11:55
PROVIDERS: ADMIT Internal Medicine Pulmonary Disease; ATTEND Internal Medicine Pulmonary Disease
PROC: 0BH17EZ Insertion of Endotracheal Airway into Trachea, Via Natural or Artificial Opening (ICD-10-PCS; principal; 2020-05-26)
PROC: 5A1935Z Respiratory Ventilation, Less than 24 Consecutive Hours (ICD-10-PCS; 2020-05-26)
PROC: 06HM33Z Insertion of Infusion Device into Right Femoral Vein, Percutaneous Approach (ICD-10-PCS; 2020-05-26)
DX: J96.01 Acute respiratory failure with hypoxia (principal); I21.3 ST elevation (STEMI) myocardial infarction of unspecified site; N17.9 Acute kidney failure, unspecified; E87.2 Acidosis; I46.9 Cardiac arrest, cause unspecified; R68.0 Hypothermia, not associated with low environmental temperature; I25.10 Atherosclerotic heart disease of native coronary artery without angina pectoris; I95.9 Hypotension, unspecified; I10 Essential (primary) hypertension; J44.9 Chronic obstructive pulmonary disease, unspecified; E87.5 Hyperkalemia; I45.10 Unspecified right bundle-branch block; D45 Polycythemia vera; E11.9 Type 2 diabetes mellitus without complications; I11.0 Hypertensive heart disease with heart failure; I50.812 Chronic right heart failure; R00.1 Bradycardia, unspecified; Z66 Do not resuscitate; Z95.5 Presence of coronary angioplasty implant and graft
CPT/HCPCS: 36415; 36600; 71045-TC-FY; 80048; 80053; 81003; 82550; 82553; 82803; 82962; 83735; 83880; 84484; 85025; 85610; 85730; 87086; 93005; 93010; 93306-TC; 99291; C9803; U0003